=== PATIENT | female | born 1970 | race Caucasian/White ===

== ENCOUNTER 2017-08-10 18:53 | Inpatient (IN) | payer OTHER ==
[~2017-08-10] VITALS: Ht 149.9 cm; Wt 52.9 kg
--- NOTE | ~2017-08-10 | HP ---
History And Physical [place] [id number] [facility] [place]. [address] NAME: ARPIT LA : 72 STATUS : ADM IN [facility]#: [id number] AGE: 47 ADM/REG DATE : 08/10/17 MR#: [id number] REPORT SERV DATE: 08/11/17 DICTATED BY: ZAHIDA SIDDIQUI DATE: 08/10/17 REPORT STATUS : Draft TRANSCRIBED BY: MODL DATE: 08/10/17 DATE OF ADMISSION: 08/10/2017 The patient has no primary care physician. CHIEF COMPLAINT: Shortness of breath. HISTORY OF PRESENT ILLNESS: A 47-year-old white female with advanced non-small cell lung carcinoma who comes in complaining of increasing shortness of breath and anxiety. She ran out of her Klonopin one day ago. She received her last thoracentesis a couple of weeks ago. Today, she does have again total left lung white out. She could not tolerate her radiation treatment. She only received one treatment. Her last chemo was about a month ago. She also states she could not tolerate her chemotherapy. Her states she has basically stopped eating and has overall not been doing well at home. She has also been very weak and has had difficulty ambulating. She has not had a fever or chills. PAST MEDICAL HISTORY: Significant for acute on chronic respiratory failure, hypercapnic- hypoxemic; non-small cell lung carcinoma, stage IV; hep C; severe protein-calorie malnutrition; and tobacco abuse. ALLERGIES: THE PATIENT HAS NO KNOWN DRUG ALLERGIES. SOCIAL HISTORY: She continues to smoke one pack per day. Lives with . Denies alcohol abuse. She is . Has an 11 and 12-year-old, at home. She is a do not resuscitate code status. No known drug allergies. FAMILY HISTORY: No family history of diabetes, hypertension, or heart disease. MEDICATIONS AT HOME: MS Contin 15 mg q.12, Klonopin 1 mg b.i.d., DuoNeb one nebulizer four times a day, Cymbalta 20 mg daily, ferrous sulfate 325 mg daily, Protonix 40 mg b.i.d., potassium chloride 20 mEq b.i.d., vitamin B12 one tablet daily, and Calan 40 mg t.i.d. REVIEW OF SYSTEMS: CONSTITUTIONAL: She has had a weight loss. No fever, sweats, or rigors. EYES: No blurred or double vision, vision loss, or glaucoma. HEENT: No headache, hearing loss, or tinnitus. CARDIOVASCULAR: No chest pain, palpitations, or syncope. No edema. She has had dyspnea on exertion. RESPIRATORY: She has had a cough. She has had some wheezing. She has had some pleuritic pain. GASTROINTESTINAL: No nausea, vomiting, hematemesis, or abdominal pain. MUSCULOSKELETAL: She does have arthralgia, arthritis. She does have lower extremity pain. INTEGUMENT: No rash or suspicious skin lesions. NEUROLOGIC: No memory loss. There has been some generalized weakness. Gait disturbance. HEMATOLOGIC: Does have a history of some anemia and some iron deficiency. PSYCHIATRIC: There are some depression and anxiety. History And Physical [address] [address] NAME: ARPIT LA : 72 STATUS : ADM IN [facility]#: [id number] AGE: 47 ADM/REG DATE : 08/10/17 MR#: [id number] REPORT SERV DATE: 08/11/17 DICTATED BY: ZAHIDA SIDDIQUI DATE: 08/10/17 REPORT STATUS : Draft TRANSCRIBED BY: CHING DATE: 08/10/17 : No dysuria or hematuria. ENDOCRINE: No diabetes, thyroid disease, or increased cholesterol. PHYSICAL EXAMINATION: VITAL SIGNS: Pulse is 117, blood pressure is 124/65, temperature 99.1, respiration 22, and O2 saturation is 98% on 3 L. CONSTITUTIONAL: Alert and appropriate. PSYCHIATRIC: Oriented x3. Memory intact. Affect appropriate. HEENT: Atraumatic, normocephalic. Temporal wasting. Oral palate without lesion. EYES: Pupils reactive, anicteric. Conjunctivae clear. NECK: No adenopathy. Supple. No thyromegaly or masses. RESPIRATORY: Decreased breath sounds entire left side, rhonchi on the right. CARDIOVASCULAR: Tachycardic, but regular. Distant heart sounds. No carotid or femoral bruits. Distal pulses diminished. ABDOMEN: Soft, nontender. No masses. SKIN: No rash or suspicious lesions. NEUROLOGIC: The patient moves all four extremities. Cranial nerves 2 through 12 intact. LYMPHATIC: No adenopathy in neck, axilla, or femoral region. MUSCULOSKELETAL: Range of motion intact in upper and lower extremity. DATA: Chest x-ray: Total left lung white out, lactate normal. AB.47, pCO2 of 54, and PO2 of 82, that is on 3 L. White blood cell count 5.9, hemoglobin 10, and platelets 272. Sodium 136, potassium 3.5, BUN 7, creatinine 0.53, and albumin 1.8. IMPRESSION/PLAN: 1. Advanced non-small cell lung carcinoma with a large reaccumulation of left pleural effusion. We will ask Interventional Radiology to drain pleural effusion in a.m. We will ask Dr. Sparks to see the patient, although patient has been unable to tolerate apparently chemotherapy and radiation therapy. We will also ask Palliative Care to see the patient as patient has expressed some interest in hospice care. 2. Anxiety/pain. We will attempt to control this. 3. Chronic respiratory failure. 4. Severe protein-calorie malnutrition. We will have dietitian to see. 5. Tobacco abuse. 6. Chronic obstructive pulmonary disease. NG/MODL Zahida Siddiqui MD / [id number] CC: Myles Simms M.D. History And Physical [address] [address] NAME: ARPIT LA : 72 STATUS : ADM IN [facility]#: [id number] AGE: 47 ADM/REG DATE : 08/10/17 MR#: [id number] REPORT SERV DATE: 08/11/17 DICTATED BY: ZAHIDA SIDDIQUI DATE: 08/10/17 REPORT STATUS : Draft TRANSCRIBED BY: MODL DATE: 08/10/17 Stanley Huff M.D.
--- NOTE | ~2017-08-10 | DS ---
Discharge Summary [address] [place]. [address] NAME: ARPIT LA : 72 STATUS : ADM IN [facility]#: [id number] AGE: 47 ADM/REG DATE : 08/10/17 MR#: [id number] REPORT SERV DATE: 08/12/17 DICTATED BY: BENNETT NAVARRO DATE: 08/12/17 REPORT STATUS : Draft TRANSCRIBED BY: MODL DATE: 08/12/17 ADMISSION DATE: 08/10/2017 DISCHARGE DATE: DISCHARGE DIAGNOSES: 1. Stage IV advanced lung cancer with left mainstem bronchus obstruction, status post stent. 2. Acute exacerbation of chronic obstructive pulmonary disease, currently resolved. 3. Pleural effusion, transudative and malignant in nature. 4. Chronic pain syndrome. 5. Anxiety disorder. 6. Hepatitis C. 7. Severe protein-calorie malnutrition. 8. Chronic tobacco abuse. 9. Chronic respiratory failure. CONSULTANTS DURING THIS HOSPITALIZATION: Interventional Radiology for placement of a PleurX catheter. BRIEF HPI: The patient is a 47-year-old female who presented with increasing shortness of breath and anxiety, so she was admitted. For detailed history and physical exam, please see note dictated by Dr. Zahida Hahn on 08/10/2017. HOSPITAL COURSE: After being admitted to the hospital, this patient was provided with aggressive nebulizing treatments and support with oxygen. When I saw the patient on the following day, this patient had significant left pleural effusion. Palliative Care has already been consulted. Palliative Care had a discussion with the patient, and the patient chose that she wanted to go home with hospice and did not want any further treatment. She has not been able to tolerate any treatment. Her performance status has been poor. I did have a discussion with Dr. Stanley Huff, her oncologist, and he agreed that hospice was probably the best choice. Because she had recurrent pleural effusion, we placed a PleurX drain for palliative measures, and she tolerated the procedure well. She is feeling well, and she says she wants to go home. DISCHARGE DISPOSITION: Home. DISCHARGE ACTIVITY: As tolerated. DISCHARGE DIET: As tolerated. DISCHARGE MEDICATIONS: Will be deferred to hospice. DISCHARGE FOLLOWUP: Will be by [facility] in the home setting. More than 30 minutes spent planning this patient's discharge, arranging hospice, and documenting this discharge. Discharge Summary [address] [place], [place]. [address] NAME: ARPIT LA : 72 STATUS : ADM IN PAT#: [id number] AGE: 47 ADM/REG DATE : 08/10/17 MR#: [id number] REPORT SERV DATE: 08/12/17 DICTATED BY: BENNETT NAVARRO DATE: 08/12/17 REPORT STATUS : Draft TRANSCRIBED BY: CHING DATE: 08/12/17 SV/CHING Bennett Navarro M.D. / [id number] CC: Beth Olivera M.D.
[~2017-08-10 18:53] MED LIST: AUG875 PO; CALAN40 MG PO; CHEMOTHERAPY IV; CYMBALTA20 PO; DIPHENCR TOP; DUONEB INH; GOODY'S EX-STR1 EAC1 PO; HABIT21 TOP; IRON PO; KADIAN40 MG PO; KADIANSR20 PO; KDUR20 PO; KLONO1 PO; L20 PO; MSCONT15 PO; MUCINEX1200 MG PO; OXYCOD PO; PR12.5 PO; PROTONIX PO; PROVHFA INH; PROVHFA PO; TESSALON200 MG PO; VITAMIN B-12 OTC PO; VITAMIN B-12 PO; ZOFRANODT8 PO
[2017-08-10 19:41] LABS: BASOPHILS 0.2 %; BASOPHILS ABSOLUTE 0.01 10/3/uL (0.0-0.16); EOSINOPHILS 1.2 %; EOSINOPHILS ABSOLUTE 0.07 10/3/uL (0.0-0.53); IMMATURE GRANULOCYTES 0.2 %; IMMATURE GRANULOCYTES ABSOLUTE 0.01 10/3/uL (0.0-0.11); LYMPHOCYTES 13.1 %; LYMPHOCYTES ABSOLUTE 0.77 10/3/uL (0.67-4.30); MEAN CORPUS HGB CONC 30.4 g/dL (32.0-36.0); MEAN PLATELET VOLUME 10.4 fL (9.2-13.0); MONOCYTES 9.7 %; MONOCYTES ABSOLUTE 0.57 10/3/uL (0.21-1.20); NEUTROPHILS 75.6 %; NEUTROPHILS ABSOLUTE 4.46 10/3/uL (2.02-8.40); PLATELET COUNT 272 10/3/uL (150-400); RBC DISTRIBUTION WIDTH 17.2 % (12.0-16.0); RED CELL COUNT 3.57 10/6/uL (4.0-5.6); WHITE BLOOD CELLS 5.9 10/3/uL (4.5-10.5)
[2017-08-10 19:42] LABS: HEMATOCRIT 32.9 % (36.0-48.0); MANUAL DIFF NO %; MEAN CORPUSCULAR VOLUME 92.2 fL (80-100)
[2017-08-10 19:56] LABS: A/G RATIO 0.4 (0.7-1.9); ALBUMIN 1.8 G/DL (3.5-5.0); CALCIUM, SERUM 8.7 MG/DL (8.5-10.4); CHLORIDE, SERUM 94 MMOL/L (96-112); CREATININE 0.53 MG/DL (0.55-1.02); GFR AFRICAN AMERICAN 132 ML/MIN (>=60); GFR NON AFRICAN AMERICAN 114 ML/MIN (>=60); GLOBULIN 5.1 G/DL (2.5-4.1); POTASSIUM, SERUM 3.5 MMOL/L (3.5-5.3); SGOT(AST) 13 U/L (5-40); SGPT(ALT) 7 U/L (5-65); SODIUM, SERUM 136 MMOL/L (135-148); TOTAL BILIRUBIN 0.6 MG/DL (0-1.2); TOTAL PROTEIN 6.9 G/DL (6.0-8.5)
[2017-08-10 19:57] LABS: ALKALINE PHOSPHATASE 63 U/L (45-117); BUN (BLOOD UREA NITROGEN) 7 MG/DL (6-23); CO2 (CARBON DIOXIDE) 36 MMOL/L (24-34); GLUCOSE, SERUM 116 MG/DL (60-99)
[2017-08-10] MEDS ORDERED: FERROUS SULF325 M1 PO (21:33)
[2017-08-10 22:09] LABS: LACTATE 1.5 MMOL/L (0.3-2.4)
[2017-08-10 22:12] LABS: ALLENS TEST Pos; BE (BASE EXCESS) 12.4 MEQ/L (0 +/- 2.5); CARBOXYHEMOGLOBIN 1.6 % (0-3); DEVICE NC; HCO3 (ACTUAL BICARBONATE) 37.9 MEQ/L (23-27); HEMOBLOGIN CONTENT 10.5 G/DL (12-16); INSTRUMENT SERIAL # 8087; METHEMOGLOBIN 0.4 % (0-3); OPERATOR ID 17589; PCO2 (CO2 TENSION) 54 MMHG (35-45); PO2 (O2 TENSION) 82 MMHG (79-93); SAMPLE Arterial; pH 7.47 (7.37-7.43)
[2017-08-11 06:15] LABS: INTERNATIONAL NORMAL RATI 1.3 UNITS (-); PARTIAL THROMBO TIME 29.9 SEC (22.5-37.2); PROTIME (NOT ORD) 16.1 SEC (12.0-14.5)
[2017-08-11 06:23] LABS: BUN (BLOOD UREA NITROGEN) 6 MG/DL (6-23); CALCIUM, SERUM 8.7 MG/DL (8.5-10.4); CHLORIDE, SERUM 93 MMOL/L (96-112); CO2 (CARBON DIOXIDE) 35 MMOL/L (24-34); CREATININE 0.46 MG/DL (0.55-1.02); GFR AFRICAN AMERICAN 138 ML/MIN (>=60); GFR NON AFRICAN AMERICAN 119 ML/MIN (>=60); GLUCOSE, SERUM 119 MG/DL (60-99); POTASSIUM, SERUM 3.7 MMOL/L (3.5-5.3); SODIUM, SERUM 133 MMOL/L (135-148)
[2017-08-12 06:29] LABS: ALBUMIN 1.8 G/DL (3.5-5.0); BUN (BLOOD UREA NITROGEN) 13 MG/DL (6-23); CALCIUM, SERUM 8.9 MG/DL (8.5-10.4); CHLORIDE, SERUM 95 MMOL/L (96-112); CO2 (CARBON DIOXIDE) 36 MMOL/L (24-34); CREATININE 0.57 MG/DL (0.55-1.02); GFR AFRICAN AMERICAN 129 ML/MIN (>=60); GFR NON AFRICAN AMERICAN 111 ML/MIN (>=60); GLUCOSE, SERUM 123 MG/DL (60-99); PHOSPHORUS, SERUM 3.1 MG/DL (2.5-4.5); POTASSIUM, SERUM 3.9 MMOL/L (3.5-5.3); SODIUM, SERUM 136 MMOL/L (135-148)
[2017-08-12 07:27] LABS: BASOPHILS 0 %; EOSINOPHILS 0 %; HEMATOCRIT 28.9 % (36.0-48.0); HEMOGLOBIN 8.8 g/dL (12.0-16.0); IMMATURE GRANULOCYTES 0.2 %; IMMATURE GRANULOCYTES ABSOLUTE 0.01 10/3/uL (0.0-0.11); LYMPHOCYTES 8.1 %; LYMPHOCYTES ABSOLUTE 0.52 10/3/uL (0.67-4.30); MANUAL DIFF NO %; MEAN CORPUS HGB CONC 30.4 g/dL (32.0-36.0); MEAN CORPUSCULAR HEMOGLOB 28.5 pg (26.0-34.0); MEAN CORPUSCULAR VOLUME 93.5 fL (80-100); MEAN PLATELET VOLUME 10.8 fL (9.2-13.0); MONOCYTES 4.5 %; MONOCYTES ABSOLUTE 0.29 10/3/uL (0.21-1.20); NEUTROPHILS 87.2 %; NEUTROPHILS ABSOLUTE 5.63 10/3/uL (2.02-8.40); PLATELET COUNT 268 10/3/uL (150-400); RBC DISTRIBUTION WIDTH 16.8 % (12.0-16.0); RED CELL COUNT 3.09 10/6/uL (4.0-5.6); WHITE BLOOD CELLS 6.5 10/3/uL (4.5-10.5)
== END 2017-08-12 17:42 | disposition hospice, home (50) | DRG 180 ==
LOC: ER 18:53 → 5NO 23:39 → ENPENDDIS 23:39 → 5NO 23:41
PROVIDERS: Emergency Medicine; Internal Medicine; Nurse Practitioner
PROC: 0W9B30Z Drainage of Left Pleural Cavity with Drainage Device, Percutaneous Approach (ICD-10-PCS; principal; 2017-08-12)
DX: C34.92 Malignant neoplasm of unspecified part of left bronchus or lung (principal); E43 Unspecified severe protein-calorie malnutrition; J91.0 Malignant pleural effusion; J96.10 Chronic respiratory failure, unspecified whether with hypoxia or hypercapnia; J44.1 Chronic obstructive pulmonary disease with (acute) exacerbation; F41.9 Anxiety disorder, unspecified; F17.210 Nicotine dependence, cigarettes, uncomplicated; G89.4 Chronic pain syndrome; Z68.23 Body mass index [BMI] 23.0-23.9, adult; Z51.5 Encounter for palliative care
CPT/HCPCS: 32550; 36600; 71010; 71020; 80048; 80053; 80069; 82805; 83605; 84145; 85025; 85049; 85610; 85730; 87040; 87070; 87205; 93005; 94640; 96374; 99284; A9270-GY; C1729; C1769; J2405; J2920; Q9967